=== PATIENT | female | born 1960 | race Caucasian/White ===

== ENCOUNTER 2016-12-01 09:08 | Inpatient (IN) | payer OTHER ==
[~2016-12-01] VITALS: Ht 170.2 cm; Wt 62.4 kg
[~2016-12-01 09:08] MED LIST: CLEOCIN300 MG PO; TYLENOL REGULA325 MG PO
[2016-12-01] MEDS ORDERED: ALENDRONATE SOD70 MG PO (09:30)
[2016-12-01] MEDS ORDERED: COLACE100 MG PO (09:31)
[2016-12-01] MEDS ORDERED: FOLIC ACID1 MG PO (09:32)
[2016-12-01] MEDS ORDERED: FLUTICASONE PRO16 GM BOTH NARES (09:32)
[2016-12-01] MEDS ORDERED: FUROSEMIDE20 MG PO (09:33)
[2016-12-01] MEDS ORDERED: LORATADINE10 M2 PO (09:33)
[2016-12-01] MEDS ORDERED: LEVOTHYROXINE88 MCG PO (09:33)
[2016-12-01] MEDS ORDERED: OMEPRAZOLE20 MG PO (09:34)
[2016-12-01] MEDS ORDERED: NITROFURANTOIN50 MG PO (09:34)
[2016-12-01] MEDS ORDERED: PALIPERIDONE ER6 MG PO (09:34)
[2016-12-01] MEDS ORDERED: DIVALPROEX SOD500 M1 PO (09:35)
[2016-12-01] MEDS ORDERED: DIVALPROEX SOD250 M1 PO ×2 (09:35→09:38)
[2016-12-01] MEDS ORDERED: DEPAKOTE ER500 MG PO (09:39)
[2016-12-01] MEDS ORDERED: NYSTOP60 GM TP ×2 (09:40→17:00)
[2016-12-01] MEDS ORDERED: TRAMADOL HCL50 MG PO (09:40)
[2016-12-01 10:30] LABS: HEMATOCRIT 37.1 % (36.0-46.0); MCH 34.3 PG (29.0-34.0); MCHC 33.2 G/DL (30.0-36.0); MCV 103.3 FL (83-99); MEAN PLAT.VOLUME 11.7 uM^3 (9.5-12.4); PLATELET COUNT 160 K/uL (156-360); RBC DIS.WIDTH-CV 12.2 % (11.8-14.6); RBC DIS.WIDTH-SD 46.1 % (39-53); RED BLOOD COUNT 3.59 M/uL (3.80-5.20); WHITE BLOOD COUNT 4.3 K/uL (4.1-10.2)
[2016-12-01 10:41] LABS: ADD MIUA? YES; BILIRUBIN NEGATIVE; BLOOD NEGATIVE; COLOR YELLOW ((YELLOW)); GLUCOSE (STRIP) NEGATIVE; KETONES NEGATIVE; LEUKOCYTES LARGE; NITRITE POSITIVE; PROTEIN (STRIP) 30
[2016-12-01 10:41] LABS: CHLORIDE 105 mEq/L (99-109); POTASSIUM 3.7 mEq/L (3.7-5.4); SODIUM 142 mEq/L (136-147)
[2016-12-01 10:43] LABS: GLUCOSE 81 mg/dL (70-99)
[2016-12-01 10:45] LABS: ANION GAP 7 MEQ/L (2-14)
[2016-12-01 10:46] LABS: BACTERIA 1+ /HPF; EPITHELIAL CELLS NONE SEEN /HPF; MUCUS TRACE /LPF; RED BLOOD CELLS 15-20 /HPF (0-5); UCUL ADDED? NO; WHITE BLOOD CELLS 30-40 /HPF (0-5)
[2016-12-01 10:47] LABS: GFR ESTIMATE (CALCULATED) > 59 mL/min/
[2016-12-01 10:48] LABS: UREA NITROGEN (BUN) 16 mg/dL (9-23)
[2016-12-01] MEDS ORDERED: SYNTHROID75 MCG PO (16:59)
[2016-12-01] MEDS ORDERED: TYLENOL REGULA325 MG PO (17:01)
[2016-12-01] MEDS ORDERED: DUONEB 2.5-0.5 M3 ML AEROSOL (17:01)
[2016-12-01] MEDS ORDERED: ROBITUSSIN DM118 ML PO (17:02)
[2016-12-01] MEDS ORDERED: BENADRYL25 MG PO (17:03)
[2016-12-01 18:26] VITALS: BP 103/53
[2016-12-01 20:26] VITALS: BP 81/41
[2016-12-01 23:27] VITALS: BP 110/56
[2016-12-02 04:14] VITALS: BP 96/51
[2016-12-02 05:45] LABS: EOSINOPHIL (%) 1.3 % (0-5); EOSINOPHIL COUNT 0.1 K/uL (0-0.3); HEMATOCRIT 31.7 % (36.0-46.0); IMMATURE GRANULOCYTE (%) 0.2 % (0.0-0.7); INSTRUMENT ABS NEUTROPHIL CT 2.3 K/uL; LYMPHOCYTE COUNT 2.2 K/uL (1.0-2.8); MCH 34.8 PG (29.0-34.0); MCHC 32.8 G/DL (30.0-36.0); MEAN PLAT.VOLUME 12.1 uM^3 (9.5-12.4); MONOCYTE (%) 15.2 % (3-12); MONOCYTE COUNT 0.8 K/uL (0-0.8); NEUTROPHIL (%) 42.8 % (45-76); NEUTROPHIL COUNT 2.3 K/uL (1.8-6.4); PLATELET COUNT 120 K/uL (156-360); RBC DIS.WIDTH-CV 12.3 % (11.8-14.6); RBC DIS.WIDTH-SD 48.4 % (39-53); RED BLOOD COUNT 2.99 M/uL (3.80-5.20); WHITE BLOOD COUNT 5.4 K/uL (4.1-10.2)
[2016-12-02 07:03] LABS: CHLORIDE 110 mEq/L (99-109); SODIUM 139 mEq/L (136-147)
[2016-12-02 07:05] LABS: GLUCOSE 76 mg/dL (70-99)
[2016-12-02 07:07] LABS: ANION GAP 5 MEQ/L (2-14)
[2016-12-02 07:09] LABS: GFR ESTIMATE (CALCULATED) > 59 mL/min/
[2016-12-02 07:10] LABS: UREA NITROGEN (BUN) 10 mg/dL (9-23)
[2016-12-02 08:07] VITALS: BP 95/51
[2016-12-02 11:00] VITALS: BP 96/52
[2016-12-02 15:14] VITALS: BP 104/58
[2016-12-02 20:47] VITALS: BP 106/69
[2016-12-02 23:01] VITALS: BP 122/65
[2016-12-03 04:37] VITALS: BP 89/55
[2016-12-03 09:17] VITALS: BP 121/69
[2016-12-03 11:11] VITALS: BP 106/63
[2016-12-03] MEDS ORDERED: BACTRIM,SEPT1 TABLET PO (14:07)
== END 2016-12-03 16:09 | disposition home or self-care (01) | DRG 689 ==
LOC: EME 09:08 → EDOF 14:52 → 4EAST 18:04
PROVIDERS: Emergency Medicine; Physician Assistant
DX: N39.0 Urinary tract infection, site not specified (principal); B96.20 Unspecified Escherichia coli [E. coli] as the cause of diseases classified elsewhere; G80.0 Spastic quadriplegic cerebral palsy; R68.0 Hypothermia, not associated with low environmental temperature; F79 Unspecified intellectual disabilities; G40.909 Epilepsy, unspecified, not intractable, without status epilepticus; K21.9 Gastro-esophageal reflux disease without esophagitis; E07.9 Disorder of thyroid, unspecified; K59.00 Constipation, unspecified; R60.9 Edema, unspecified; Z85.820 Personal history of malignant melanoma of skin
CPT/HCPCS: 70450; 72125; 76770; 80048; 80069; 80164; 81003; 83605; 85025; 85027; 87077; 87086; 87186; 93005; 99202; 99281; 99283; J0696; J1644; J7030; J7040; J7050

== ENCOUNTER → 2017-02-08 | Outpatient (CLI) | payer OTHER ==
[~2017-02-08] MED LIST changes: +ALENDRONATE SOD70 MG PO; +BACTRIM,SEPT1 TABLET PO; +BENADRYL25 MG PO; +COLACE100 MG PO; +DEPAKOTE ER500 MG PO; +DIVALPROEX SOD250 M1 PO; +DIVALPROEX SOD500 M1 PO; +DUONEB 2.5-0.5 M3 ML AEROSOL; +FLUTICASONE PRO16 GM BOTH NARES; +FOLIC ACID1 MG PO; +FUROSEMIDE20 MG PO; +LEVOTHYROXINE88 MCG PO; +LORATADINE10 M2 PO; +NITROFURANTOIN50 MG PO; +NYSTOP60 GM TP; +OMEPRAZOLE20 MG PO; +PALIPERIDONE ER6 MG PO; +ROBITUSSIN DM118 ML PO; +SYNTHROID75 MCG PO; +TRAMADOL HCL50 MG PO
== END | disposition home or self-care (01) ==
DX: R13.11 Dysphagia, oral phase (principal); R13.13 Dysphagia, pharyngeal phase; R05 Cough; F79 Unspecified intellectual disabilities
CPT/HCPCS: 92611 GN; G8996 GN; G8997 GN; G8998 GN

== ENCOUNTER → 2017-10-18 | Outpatient (CLI) | payer OTHER | END | disposition home or self-care (01) | DX: R13.12 Dysphagia, oropharyngeal phase (principal); Z87.19 Personal history of other diseases of the digestive system | CPT/HCPCS: 92611 GN; G8996 GN; G8997 GN; G8998 GN ==